=== PATIENT | male | born 1965 | race Caucasian/White ===

== ENCOUNTER 2022-07-19 05:35 | Day surgery (SDC) | payer BC, OTHER ==
[2022-07-18 10:28] VITALS: BMI 17.6
[2022-07-19 14:11] VITALS: TEMP 98
[2022-07-19 14:47] VITALS: BP 131/76; PULSE 60; RESP 12
== END 2022-07-19 14:53 | disposition home or self-care (01) ==
LOC: JASU-ENDO 05:35
PROVIDERS: ATTEND Student in an Organized Health Care Education/Training Program
PROC: 0DB78ZX Excision of Stomach, Pylorus, Via Natural or Artificial Opening Endoscopic, Diagnostic (ICD-10-PCS; 2022-07-19)
PROC: 0DB68ZX Excision of Stomach, Via Natural or Artificial Opening Endoscopic, Diagnostic (ICD-10-PCS; 2022-07-19)
PROC: 0DB48ZX Excision of Esophagogastric Junction, Via Natural or Artificial Opening Endoscopic, Diagnostic (ICD-10-PCS; 2022-07-19)
PROC: 0DB98ZX Excision of Duodenum, Via Natural or Artificial Opening Endoscopic, Diagnostic (ICD-10-PCS; principal; 2022-07-19 13:00)
DX: K29.50 Unspecified chronic gastritis without bleeding (principal); K21.00 Gastro-esophageal reflux disease with esophagitis, without bleeding
CPT/HCPCS: 88305-TC; 88342-TC

== ENCOUNTER 2022-07-26 04:49 | Day surgery (SDC) | payer BC, OTHER ==
[2022-07-22 16:28] VITALS: BMI 17.6
[2022-07-26 13:40] VITALS: TEMP 97.4
[2022-07-26 14:01] VITALS: RESP 16
[2022-07-26 14:08] VITALS: BP 103/70; PULSE 83
== END 2022-07-26 14:11 | disposition home or self-care (01) ==
LOC: JASU-ENDO 04:49
PROVIDERS: ATTEND Student in an Organized Health Care Education/Training Program
PROC: 0DBK8ZX Excision of Ascending Colon, Via Natural or Artificial Opening Endoscopic, Diagnostic (ICD-10-PCS; principal; 2022-07-26 11:30)
DX: K63.5 Polyp of colon (principal)
CPT/HCPCS: 88305-TC